=== PATIENT | male | born 1990 | race Caucasian/White ===

== ENCOUNTER 2017-03-14 22:26 | Emergency (ER) | payer SELFPAY ==
[2017-03-14 23:01] VITALS: O2SAT 98
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
[2017-03-14 23:44] VITALS: BP 138/81; PULSE 75
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
== END 2017-03-14 23:44 | disposition home or self-care (01) ==
LOC: ED 22:26
DX: S05.92XA Unspecified injury of left eye and orbit, initial encounter (principal)
CPT/HCPCS: 70480; 99283

== ENCOUNTER 2017-08-04 09:22 | Emergency (ER) | payer OTHER, SELFPAY ==
[2017-08-04 09:46] VITALS: PULSE 60; O2SAT 99
[2017-08-04] MEDS ORDERED: Adacel Vial IM ONE ×2 (09:48→10:11)
--- NOTE | 2017-08-04 09:52 | ERPHSYRPT ---
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 He has broken his fingernail through the middle of it. He is able to move his finger. Bleeding now is minimal. His last tetanus vaccination was unknown. His past medical history is unremarkable. Timing/Duration: today Quality: painful Severity: moderate Location: hands (left) Possible Causes: other (trauma) Allergies/Adverse Reactions: No Known Drug Allergies Allergy (Unverified 08/04/17 09:47) Hx Tetanus, Diphtheria Vaccination/Date Given: No Hx Influenza Vaccination/Date Given: No Hx Pneumococcal Vaccination/Date Given: No Immunizations Up to Date: Yes - Review of Systems Constitutional: No Fever, No Chills Eyes: No Symptoms Ears, Nose, & Throat: No Symptoms Respiratory: No Cough, No Dyspnea Cardiac: No Chest Pain, No Edema, No Syncope Abdominal/Gastrointestinal: No Abdominal Pain, No Nausea, No Vomiting, No Diarrhea Genitourinary Symptoms: No Dysuria Musculoskeletal: Injury, No Back Pain, No Neck Pain Skin: No Rash Neurological: No Dizziness, No Focal Weakness, No Sensory Changes Psychological: No Symptoms Endocrine: No Symptoms Hematologic/Lymphatic: No Symptoms Immunological/Allergic: No Symptoms All Other Systems: Reviewed and Negative - Past Medical History Pertinent Past Medical History: Yes Neurological History: Migraines ENT History: No Pertinent History Cardiac History: No Pertinent History Respiratory History: No Pertinent History Endocrine Medical History: No Pertinent History Musculoskeletal History: No Pertinent History GI Medical History: No Pertinent History History: No Pertinent History Psycho-Social History: No Pertinent History Male Reproductive Disorders: No Pertinent History - Past Surgical History Past Surgical History: No - Social History Smoking Status: Never smoker Exposure to second hand smoke: No Drug Use: none Patient Lives Alone: No - Nursing Vital Signs Nursing Vital Signs: Initial Vital Signs Temperature 97.4 F 08/04/17 09:43 Pulse Rate 60 08/04/17 09:43 Respiratory Rate 18 08/04/17 09:43 Blood Pressure 133/80 08/04/17 09:43 O2 Sat by Pulse Oximetry 99 08/04/17 09:43 Pain Scale Pain Intensity 3 - Physical Exam General Appearance: no apparent distress, alert Eye Exam: PERRL/EOMI, eyes nml inspection Ears, Nose, Throat Exam: normal ENT inspection, pharynx normal, moist mucous membranes Neck Exam: normal inspection, non-tender, supple, full range of motion Respiratory Exam: normal breath sounds, lungs clear, No respiratory distress Cardiovascular Exam: regular rate/rhythm, normal heart sounds Gastrointestinal/Abdomen Exam: soft, mass, No tenderness Rectal Exam: not done Back Exam: normal inspection, normal range of motion, No CVA tenderness, No vertebral tenderness Extremity Exam: normal inspection, normal range of motion Neurologic Exam: alert, oriented x 3, cooperative, normal mood/affect, sensation nml, No motor deficits Skin Exam: laceration (finger nail of left middle finger is split. there is no laceration of surrounding skin.) SpO2 Interpretation: normal SpO2: 99 Oxygen Delivery: Room Air - Radiology Exams Left Hand X-ray Interpretation: Reviewed by me, Teleradiologist Report, Non-displaced Fracture (tuft fracture of left 3rd digit per Dr Zuñiga.) Ordered Tests: Active Orders 24 hr Category Date Time Status IV Insertion STAT Care 08/04/17 10:21 Active FINGER(S) Stat Exams 08/04/17 09:48 Completed Medication Summary Discontinued Medications Generic Name Dose Route Start Last Admin Trade Name Freq PRN Reason Stop Dose Admin Diphtheria/Tetanus/Acell Pertussis 0.5 ml 08/04/17 09:48 08/04/17 10:13 Adacel Vial IM 08/04/17 09:49 0.5 ml .ONCE ONE Administration Diphtheria/Tetanus/Acell Pertussis Confirm 08/04/17 10:11 Adacel Vial Administered 08/04/17 10:12 Dose 0.5 ml IM .STK-MED ONE Ceftriaxone Sodium/Dextrose 1 g in 50 mls @ 100 mls/hr 08/04/17 10:22 10:48 Rocephin 1 Gm-D5w 50 Ml Bag IV 08/04/17 10:51 100 mls/hr STAT STA Administration Ceftriaxone Sodium/Dextrose Confirm 08/04/17 10:38 Rocephin 1 Gm-D5w 50 Ml Bag Administered 08/04/17 10:39 Dose 1 g in 50 mls @ ud IV .STK-MED ONE - Progress Progress: improved Counseled pt/family regarding: diagnosis, rad results - Departure Time of Disposition: 11:10 Departure Disposition: Home Clinical Impression: Open fracture of tuft of distal phalanx of finger Condition: Stable Critical Care Time: No Referrals: BRAD DASH [Primary Care Provider] - Prescriptions: Amoxicillin/Potassium Clav [Augmentin 875-125 Tablet] 1 each PO BID #20 tablet
[2017-08-04] MEDS ORDERED: ROCEPHIN 1 Gm-D5w 50 ml Bag** 1 G/50 ML IVPB IV STA (10:22)
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
[2017-08-04] MEDS ORDERED: ROCEPHIN 1 Gm-D5w 50 ml Bag** 1 G/50 ML IVPB IV ONE (10:38)
[2017-08-04 10:51] VITALS: BP 134/70
== END 2017-08-04 11:30 | disposition home or self-care (01) ==
LOC: ED 09:22
DX: S62.632B Displaced fracture of distal phalanx of right middle finger, initial encounter for open fracture (principal); W22.8XXA Striking against or struck by other objects, initial encounter; Y92.79 Other farm location as the place of occurrence of the external cause; Y99.0 Civilian activity done for income or pay; S61.312A Laceration without foreign body of right middle finger with damage to nail, initial encounter; W26.8XXA Contact with other sharp object(s), not elsewhere classified, initial encounter
CPT/HCPCS: 36000; 73140; 90471; 90715; 96365; 99284; J0696

== ENCOUNTER 2021-05-17 20:55 | Emergency (ER) | payer BC, OTHER ==
[2021-05-17] MEDS ORDERED: TORAdol 30 mg Injection IV ONE (21:10)
[2021-05-17] MEDS ORDERED: Sodium Chloride 0.9% 1000 ML 1,000 ML IV STA (21:10)
[2021-05-17] MEDS ORDERED: TORAdol 30 mg Injection ONE (21:12)
[2021-05-17] MEDS ORDERED: Sodium Chloride 0.9% 1000 ML 1,000 ML ONE (21:12)
[2021-05-17 21:21] VITALS: O2SAT 98
[2021-05-17 21:40] LABS: Appearance CLEAR (CLEAR); Bilirubin NEGATIVE (NEGATIVE); Blood SMALL Ery/ul (0-5); Glucose NEGATIVE (NEGATIVE); Ketones NEGATIVE (NEGATIVE); Leukocyte Esterase NEGATIVE (NEGATIVE); Nitrite NEGATIVE (NEGATIVE); Protein,Urine Dip NEGATIVE (Negative); Specific Gravity 1.002 (1.005-1.025); Urobilinogen NEGATIVE mg/dL (0-1)
[2021-05-17 21:44] LABS: Absolute Neutrophil Ct (ANC) 7.14 (1.4-6.9); Basophil (Absolute #) 0.03 (0-0.4); Eosinophil % 1.9 % (0.00-5.0); Eosinophil (Absolute #) 0.23 (0-0.5); Hematocrit 45.6 % (42-50); Hemoglobin 15.5 gm/dl (12.5-18.0); Lymphocyte (Absolute #) 3.21 (1.0-4.6); Mean Cell Volume 85.4 fl (78-100); Mean Platelet Volume 9.9 fl (7.5-11.0); Monocyte (Absolute #) 1.27 (0.0-1.3); Monocytes % 10.7 % (0.0-12.0); Neutrophil % 60.1 % (36.0-66.0); Platelet Count 301 K/mm3 (150-450); Red Blood Count 5.34 M/mm3 (4.1-5.6); Red Cell Distribution Width 14.1 % (11.5-14.0); White Blood Count 11.9 K/mm3 (4.0-10.5)
[2021-05-17 21:46] LABS: ALBUMIN 4.6 g/dL (3.5-5.0); ALKALINE PHOSPHATASE 82 U/L (38-126); ANION GAP 11.6 MEQ/L (5-15); BLOOD UREA NITROGEN 15 mg/dL (9-20); CHLORIDE 108 mmol/L (98-107); Calcium 9.5 mg/dL (8.4-10.2); Carbon Dioxide 27 mmol/L (22-30); Creatinine 1 1.16 mg/dL (0.66-1.25); EST GLOMERULAR FILTRATION RATE > 60.0 ML/MIN; Glucose 92 mg/dL (74-106); Potassium 4.2 mmol/L (3.5-5.1); SGOT/AST 30 U/L (17-59); SGPT/ALT 31 U/L (0-50); SODIUM 142 mmol/L (137-145); Total Protein 7.9 g/dL (6.3-8.2)
--- NOTE | 2021-05-17 22:24 | ERPHSYRPT ---
- History of Present Illness Time Seen by Provider: 05/17/21 21:10 Historian: patient Exam Limitations: no limitations Patient Subjective Stated Complaint: pt states he has lt side abd pain. describes as sharp and does not radiate. states he almost fell yesterday on his deck and thinks he may have pulled something. states no pain before that . Triage Nursing Assessment: pt alert and oriented, answers questions approp. pt ambulatory with steady gait noted. respirations nonlabored. abd soft and nontender with hyper bowel sounds noted x4. pt reports increase in pain with movement. Physician History: Patient 31-year-old male presents to our ED with a 1 day history of left lower abdominal pain. Pain described as a sharp sensation. Patient believes he may have injured himself. Patient states he slipped and fell on his deck yesterday. Since then he has been experiencing pain. Pain is well localized. No radiati on. Timing/Duration: yesterday Activities at Onset: none Quality: aching Abdominal Pain Onset Location: LLQ Pain Radiation: no radiation Severity of Pain-Max: moderate Severity of Pain-Current: mild Modifying Factors: Improves With: palpation Associated Symptoms: denies symptoms Previous symptoms: no prior history Allergies/Adverse Reactions: No Known Drug Allergies Allergy (Verified 05/17/21 21:21) Home Medications: No Reportable Medications [No Reported Medications] 05/17/21 [History] Hx Tetanus, Diphtheria Vaccination/Date Given: Yes (unsure) Hx Influenza Vaccination/Date Given: No Hx Pneumococcal Vaccination/Date Given: No Immunizations Up to Date: Yes Travel Risk - International Travel Have you traveled outside of the country in past 3 weeks: No - Coronavirus Screening Are you exhibiting any of the following symptoms?: No Close contact with a COVID-19 positive Pt in past 14-21 Days: No - Vaccine Status Have you recieved a Covid-19 vaccination: No - Review of Systems Constitutional: No Symptoms, No Fever, No Chills Eyes: No Symptoms Ears, Nose, & Throat: No Symptoms Respiratory: No Symptoms, No Cough, No Dyspnea Cardiac: No Symptoms, No Chest Pain, No Edema, No Syncope Abdominal/Gastrointestinal: No Symptoms, No Abdominal Pain, No Nausea, No Vomiting, No Diarrhea Genitourinary Symptoms: No Symptoms, No Dysuria Musculoskeletal: No Symptoms, No Back Pain, No Neck Pain Skin: No Symptoms, No Rash Neurological: No Symptoms, No Dizziness, No Focal Weakness, No Sensory Changes Psychological: No Symptoms Endocrine: No Symptoms Hematologic/Lymphatic: No Symptoms Immunological/Allergic: No Symptoms All Other Systems: Reviewed and Negative - Past Medical History Pertinent Past Medical History: Yes Neurological History: Migraines ENT History: No Pertinent History Cardiac History: No Pertinent History Respiratory History: No Pertinent History Endocrine Medical History: No Pertinent History Musculoskeletal History: No Pertinent History GI Medical History: No Pertinent History History: No Pertinent History Psycho-Social History: No Pertinent History Male Reproductive Disorders: No Pertinent History - Past Surgical History Past Surgical History: Yes Musculoskeletal: Orthopedic Surgery Other Surgical History: thumb surgery - Social History Smoking Status: Former smoker Exposure to second hand smoke: No Drug Use: none Patient Lives Alone: No - Nursing Vital Signs Nursing Vital Signs: Initial Vital Signs Temperature 97.9 F 05/17/21 21:02 Pulse Rate 85 05/17/21 21:02 Respiratory Rate 16 05/17/21 21:02 Blood Pressure 149/95 05/17/21 21:02 O2 Sat by Pulse Oximetry 98 05/17/21 21:02 Pain Scale Pain Intensity 8 - Physical Exam General Appearance: no apparent distress, alert Eye Exam: PERRL/EOMI, eyes nml inspection Ears, Nose, Throat Exam: normal ENT inspection, pharynx normal, moist mucous membranes Neck Exam: normal inspection, non-tender, supple, full range of motion Respiratory Exam: normal breath sounds, lungs clear, airway intact, No respiratory distress Cardiovascular Exam: regular rate/rhythm, normal heart sounds, normal peripheral pulses Gastrointestinal/Abdomen Exam: soft, other (Tenderness palpation left lower quadrant. No rebound no guarding.), No tenderness, No mass, No guarding, No rebound Male Genitalia Exam: other (No testicular pain.) Back Exam: normal inspection, normal range of motion, No CVA tenderness, No vertebral tenderness Extremity Exam: normal inspection, normal range of motion, pelvis stable Neurologic Exam: alert, oriented x 3, cooperative, normal mood/affect, nml cerebellar function, nml station & gait, sensation nml, No motor deficits Skin Exam: normal color, warm, dry Lymphatic Exam: No adenopathy SpO2 Interpretation: normal SpO2: 98 O2 Delivery: Room Air - Course Nursing assessment & vital signs reviewed: Yes - CT Exams Abdomen/Pelvis CT Interpretation: Tele-radiologist Report (No comps. 2 punctate nonobstructing right renal stones, small focal distal descending colon appendagitis. Remaining abdomen pelvis negative.) Ordered Tests: Active Orders 24 hr Category Date Time Status IV Insertion STAT Care 05/17/21 21:10 Active ABDOMEN AND PELVIS W/0 CONTRAS [CT] Stat Exams 05/17/21 21:21 Taken CBC W DIFF Stat Lab 05/17/21 21:33 Received CMP Stat Lab 05/17/21 21:33 Completed UA W/RFX UR CULTURE Stat Lab 05/17/21 21:33 Received Medication Summary Discontinued Medications Generic Name Dose Route Start Last Admin Trade Name Freq PRN Reason Stop Dose Admin Sodium Chloride 1,000 mls @ 999 mls/hr 05/17/21 21:10 05/17/21 21:14 Sodium Chloride 0.9% 1000 Ml IV 05/17/21 22:10 999 mls/hr .Q1H1M STA Administration Sodium Chloride Confirm 05/17/21 21:12 Sodium Chloride 0.9% 1000 Ml Administered 05/17/21 21:13 Dose 1,000 mls @ ud .ROUTE .STK-MED ONE Ketorolac Tromethamine 30 mg 05/17/21 21:10 05/17/21 21:14 Ketorolac Tromethamine 30 Mg/Ml Inj IV 05/17/21 21:11 30 mg STAT ONE Administration Ketorolac Tromethamine Confirm 05/17/21 21:12 Ketorolac Tromethamine 30 Mg/Ml Inj Administered 05/17/21 21:13 Dose 30 mg .ROUTE .STK-MED ONE Lab/Rad Data: Laboratory Result Diagrams 05/17/21 21:33 Laboratory Results 05/17/21 Range/Units 21:33 Sodium 142 (137-145) mmol/L Potassium 4.2 (3.5-5.1) mmol/L Chloride 108 H (98-107) mmol/L Carbon Dioxide 27 (22-30) mmol/L Anion Gap 11.6 (5-15) MEQ/L BUN 15 (9-20) mg/dL Creatinine 1.16 (0.66-1.25) mg/dL Estimated GFR > 60.0 ML/MIN Glucose 92 (74-106) mg/dL Calcium 9.5 (8.4-10.2) mg/dL Total Bilirubin 0.50 (0.2-1.3) mg/dL AST 30 (17-59) U/L ALT 31 (0-50) U/L Alkaline Phosphatase 82 (38-126) U/L Serum Total Protein 7.9 (6.3-8.2) g/dL Albumin 4.6 (3.5-5.0) g/dL - Progress Progress: improved Progress Note: Patient reassessed. Pain resolved after administration of Toradol. Work-up reveals a small focal distal descending colon appendagitis. 2 punctate nonobstructing right renal stones. Remaining abdomen pelvis negative. No indication for further work-up at this time. Will discharge home. Supportive care only. Patient agrees to follow-up with his primary care doctor within 48 hours for evaluation. 05/17/21 22:26 Counseled pt/family regarding: lab results, diagnosis, need for follow-up, rad results - Departure Departure Disposition: Home Clinical Impression: Nephrolithiasis, Left lower quadrant pain, Epiploic appendagitis Condition: Stable Critical Care Time: No Referrals: BRAD DASH [Primary Care Provider] - Follow up/PCP as directed Additional Instructions: Discharge/Care Plan KEVINGARFIELD MOISES was seen on 05/17/21 in the Emergency Room. The patient was counseled regarding Diagnosis,Lab results, Imaging studies, need for follow up and when to return to the Emergency Room. Prescriptions given: Discharge Note I have spoken with the patient and/or caregivers. I have explained the patient's condition, diagnosis and treatment plan based on the information available to me at this time. I have answered the patient's and/or caregiver's questions and addressed any concerns. The patient and/or caregivers have as good understanding of the patient's diagnosis, condition and treatment plan as can be expected at this point. The vital signs have been stable. The patient's condition is stable and appropriate for discharge from the emergency department. The patient will pursue further outpatient evaluation with the primary care physician or other designated or consulting physician as outlined in the discharge instructions. The patient and/or caregivers are agreeable to this plan of care and follow-up instructions have been explained in detail. The patient and/or caregivers have received these instruction. The patient/and or caregivers are aware that any significant change in condition or worsening of symptoms should prompt an immediate return to this or the closest emergency department or call 911.
[2021-05-17 22:30] VITALS: BP 123/74; PULSE 87
--- NOTE | 2021-05-18 08:42 | XRAY ---
Indication: Left flank/left lower quadrant pain. Kidney stone. Multiple contiguous images obtained through the abdomen and pelvis without contrast using renal stone protocol. Comparison: None Lung bases demonstrates mild bibasilar fibrosis/scarring and small left lower lobe calcified granuloma. No infiltrate or effusion. Heart not enlarged. Right kidney demonstrates 2 nonobstructing punctate calculi.. Left kidney negative for renal calculus or evidence for obstructive uropathy. Stomach is distended with food/fluid. Noncontrasted bowel loops appear nonobstructed with normal appendix. Distal descending colon demonstrates subtle focus of eccentric pericolonic stranding favoring epiploic appendagitis. No free fluid/air. Gallbladder contracted without gallstones. Remaining liver, pancreas, spleen, adrenal glands, kidneys, ureters, bladder, and aorta are unremarkable for noncontrast exam. Osseous structures intact with minimal degenerative changes throughout the spine. No ventral or inguinal hernias. Impression: 1. 2 nonobstructing right renal micro-calculi. 2. Distal descending epiploic appendagitis. 3. Remaining CT abdomen/pelvis without contrast exam is negative.
== END 2021-05-17 22:38 | disposition home or self-care (01) ==
LOC: ED 20:55
DX: N20.0 Calculus of kidney (principal); K63.89 Other specified diseases of intestine; R10.32 Left lower quadrant pain
CPT/HCPCS: 36000; 36415; 74176; 80053; 81001; 85025; 96374; 99284; J1885